=== PATIENT | female | born 1995 | race Two or more races ===

== ENCOUNTER → 2019-06-06 | Emergency (ER) | payer OTHER ==
[~2019-06-06] VITALS: Ht 160 cm; Wt 60.3 kg
== END | disposition home or self-care (01) ==
LOC: ER 22:51
DX: O20.0 Threatened abortion (principal)

== ENCOUNTER 2019-07-21 05:30 | Emergency (ER) | payer OTHER ==
[~2019-07-21] VITALS: Ht 152.4 cm; Wt 65.3 kg
[2019-07-21] MEDS ORDERED: PRENATAL + DHA1 EAC1 (05:42)
[2019-07-21] MEDS ORDERED: FOLIC ACID20 MG (05:42)
== END 2019-07-21 09:39 | disposition home or self-care (01) ==
LOC: ER 05:30
DX: O20.0 Threatened abortion (principal)

== ENCOUNTER 2020-01-01 11:20 | Inpatient (IN) | payer OTHER ==
[~2020-01-01] VITALS: Ht 160 cm; Wt 180.0 kg
[~2020-01-01 11:20] MED LIST: FOLIC ACID20 MG; PRENATAL + DHA1 EAC1
[2020-01-24] MEDS ORDERED: VALTREX1000 MG PO (02:53)
== END 2020-01-26 18:14 | DRG 807 ==
LOC: OB/GYN 01-23 14:15 → LDR 01-24 02:01 → OB/GYN 01-24 02:01
PROVIDERS: ADMIT Obstetrics & Gynecology; ATTEND Obstetrics & Gynecology
PROC: 10E0XZZ Delivery of Products of Conception, External Approach (ICD-10-PCS; principal; 2020-01-24)
PROC: 0KQM0ZZ Repair Perineum Muscle, Open Approach (ICD-10-PCS; 2020-01-24)
PROC: 0W8NXZZ Division of Female Perineum, External Approach (ICD-10-PCS; 2020-01-24)
PROC: 4A1HXCZ Monitoring of Products of Conception, Cardiac Rate, External Approach (ICD-10-PCS; 2020-01-24)
DX: O70.1 Second degree perineal laceration during delivery (principal); Z37.0 Single live birth; Z3A.40 40 weeks gestation of pregnancy; Z20.828 Contact with and (suspected) exposure to other viral communicable diseases

== ENCOUNTER 2020-01-15 13:00 | Outpatient (CLI) | payer OTHER | END 2020-01-15 13:43 | disposition home or self-care (01) | LOC: NST 13:00 | PROVIDERS: ATTEND Obstetrics & Gynecology | DX: Z34.83 Encounter for supervision of other normal pregnancy, third trimester (principal) ==

== ENCOUNTER → 2020-01-20 | Outpatient (CLI) | payer OTHER | END | disposition home or self-care (01) | LOC: NST 15:44 → OBS/DEL 15:44 | PROVIDERS: ATTEND Obstetrics & Gynecology | DX: Z34.83 Encounter for supervision of other normal pregnancy, third trimester (principal) ==

== ENCOUNTER → 2025-04-01 | Emergency (ER) | payer OTHER ==
[~2025-04-01] VITALS: Ht 160 cm; Wt 63.5 kg
[~2025-04-01] MED LIST changes: +0.9 % SODIUM CHLORIDE 1,000 ML IV ONE; +DEXAMETHASONE SODIUM PHOSP/PF 10 MG/ML VIAL IV ONE; +FAMOTIDINE/PF 20 MG/2 ML VIAL IV ONE; +FAMOTIDINE/PF 20 MG/2 ML VIAL ONE; +KETOROLAC TROMETHAMINE 30 MG VIAL IU ONE; +KETOROLAC TROMETHAMINE 30 MG VIAL IV STA; +KETOROLAC TROMETHAMINE 30 MG VIAL ONE; +MORPHINE SULFATE 4 MG/ML VIAL IV STA; +PIPERACILLIN/TAZOBACTAM SODIUM 3.375 GM VIAL IV ONE; +PIPERACILLIN/TAZOBACTAM SODIUM 3.375 GM VIAL IV STA; +TRAMADOL HCL E100 MG PO; +VALTREX1000 MG PO
[2025-04-01 20:18] VITALS: BP 100/63; O2SAT 98
[2025-04-02 00:16] LABS: BASO % 0.6 % (0.1-1.2); EOS # 0.20 (0.04-0.54); EOS % 2.1 % (0.7-7.0); LYMPH # 2.93 (1.18-3.74); LYMPH % 31.1 % (19.3-53.1); MEAN PLATELET VOLUME 10.20 fl (9.4-12.4); MONO # 0.71 (0.24-0.82); MONO % 7.5 % (4.7-12.5); NEUT # 5.50 (1.56-6.13); NEUT % 58.4 % (34.0-71.1); RED CELL DISTRIBUTION WIDTH 12.0 % (11.6-14.4)
[2025-04-02 00:29] LABS: ALT/SGPT 24.0 U/L (12-78); AST/SGOT 12.0 U/L (15-37); BILIRUBIN TOTAL 0.49 mg/dL (0.3-1.2); BUN CREA RATIO 16.0 (7.0-25.0); CREATININE SERUM 0.9 mg/dL (0.55-1.02); GFR 73.03; GLOBULINA 3.3 G/DL (2.4-3.5); GLUCOSE FASTING 105.0 mg/dL (65-100); OSMOLALITY SERUM 280.0 MOSM/KG (275-295)
[2025-04-02 02:43] LABS: URINE APPEARANCE Clear; URINE BILIRRUBIN Negative (NEGATIVE); URINE BLOOD Large; URINE COLOR Dark Yellow; URINE GLUCOSE Negative (NEGATIVE); URINE KETONE Trace (NEGATIVE); URINE LEUKOCYTE Negative; URINE NITRATE Negative; URINE UROBILINOGEN 1.0 E.U./dl
[2025-04-02 02:49] LABS: URINE BACTERIA 1663.2 uL (0.0-1933); URINE RBC 262.3 uL (0.0-20.8)
[2025-04-02 02:54] LABS: URINE EPITHELIAL CELLS 0.4 uL (0.0-38.8); URINE PROTEIN 100 (NEGATIVE); URINE WBC 0.6 uL (0.0-23.2)
[2025-04-02 02:55] LABS: URINE CAST 0.00 uL (0.0-1.40)
== END | disposition home or self-care (01) ==
LOC: ER 19:18
PROVIDERS: General Practice
DX: O20.8 Other hemorrhage in early pregnancy (principal); Z3A.01 Less than 8 weeks gestation of pregnancy; Z32.01 Encounter for pregnancy test, result positive

== ENCOUNTER 2025-04-03 11:46 | Inpatient (IN) | payer OTHER ==
[~2025-04-03] VITALS: Ht 170.2 cm; Wt 72.6 kg
[~2025-04-03 11:46] MED LIST changes: -0.9 % SODIUM CHLORIDE 1,000 ML IV ONE; -DEXAMETHASONE SODIUM PHOSP/PF 10 MG/ML VIAL IV ONE; -FAMOTIDINE/PF 20 MG/2 ML VIAL IV ONE; -FAMOTIDINE/PF 20 MG/2 ML VIAL ONE; -KETOROLAC TROMETHAMINE 30 MG VIAL IU ONE; -KETOROLAC TROMETHAMINE 30 MG VIAL IV STA; -KETOROLAC TROMETHAMINE 30 MG VIAL ONE; -MORPHINE SULFATE 4 MG/ML VIAL IV STA; -PIPERACILLIN/TAZOBACTAM SODIUM 3.375 GM VIAL IV ONE; -PIPERACILLIN/TAZOBACTAM SODIUM 3.375 GM VIAL IV STA
[2025-04-03] MEDS ORDERED: 0.9 % SODIUM CHLORIDE 1,000 ML IV SCH (12:00)
[2025-04-03] MEDS ORDERED: RINGERS SOLUTION,LACTATED 1,000 ML IV SCH (12:15)
[2025-04-03 12:29] LABS: BASO % 0.5 % (0.1-1.2); EOS # 0.06 (0.04-0.54); EOS % 1.0 % (0.7-7.0); LYMPH # 2.51 (1.18-3.74); LYMPH % 43.1 % (19.3-53.1); MEAN PLATELET VOLUME 10.00 fl (9.4-12.4); MONO # 0.44 (0.24-0.82); MONO % 7.6 % (4.7-12.5); NEUT # 2.77 (1.56-6.13); NEUT % 47.6 % (34.0-71.1); RED CELL DISTRIBUTION WIDTH 12.0 % (11.6-14.4)
[2025-04-03 13:06] LABS: INR 0.98
[2025-04-03 13:09] LABS: ALT/SGPT 24.0 U/L (12-78); AST/SGOT 11.0 U/L (15-37); BILIRUBIN TOTAL 0.59 mg/dL (0.3-1.2); BUN CREA RATIO 23.0 (7.0-25.0); CREATININE SERUM 0.65 mg/dL (0.55-1.02); GFR 106.31; GLOBULINA 3.4 G/DL (2.4-3.5); GLUCOSE FASTING 93.0 mg/dL (65-100); OSMOLALITY SERUM 284.0 MOSM/KG (275-295)
[2025-04-03] MEDS ORDERED: POVIDONE-IODINE 118 ML BOTT TOP ONE (13:19)
[2025-04-03] MEDS ORDERED: CEFAZOLIN SODIUM 1,000 MG VIAL ONE (14:16)
[2025-04-03] MEDS ORDERED: KETOROLAC TROMETHAMINE 30 MG VIAL IV PRN (18:15)
[2025-04-04] MEDS ORDERED: ACETAMINOPHEN 500 MG GEL..CAP PO PRN
[2025-04-04] MEDS ORDERED: GABAPENTIN 300 MG CAPSULE PO SCH (01:00)
[2025-04-04] MEDS ORDERED: ACETAMINOPHEN 500 MG GEL..CAP PO ONE ×2 (02:02→08:08)
[2025-04-04] MEDS ORDERED: GABAPENTIN 300 MG CAPSULE PO ONE ×2 (02:50→08:08)
[2025-04-04 09:06] LABS: BASO % 0.4 % (0.1-1.2); EOS # 0.21 (0.04-0.54); EOS % 3.9 % (0.7-7.0); LYMPH # 1.93 (1.18-3.74); LYMPH % 35.5 % (19.3-53.1); MEAN PLATELET VOLUME 9.90 fl (9.4-12.4); MONO # 0.58 (0.24-0.82); MONO % 10.7 % (4.7-12.5); NEUT # 2.68 (1.56-6.13); NEUT % 49.3 % (34.0-71.1); RED CELL DISTRIBUTION WIDTH 11.9 % (11.6-14.4)
[2025-04-04 09:31] LABS: ALT/SGPT 18.0 U/L (12-78); AST/SGOT 10.0 U/L (15-37); BILIRUBIN TOTAL 0.5 mg/dL (0.3-1.2); BUN CREA RATIO 16.0 (7.0-25.0); CREATININE SERUM 0.49 mg/dL (0.55-1.02); GFR 147.3; GLOBULINA 2.7 G/DL (2.4-3.5); GLUCOSE FASTING 86.0 mg/dL (65-100); OSMOLALITY SERUM 279.0 MOSM/KG (275-295)
[2025-04-04 15:54] VITALS: O2SAT 100
[2025-04-04 17:45] VITALS: BP 111/63
[2025-04-05 00:15] VITALS: BP 103/68
[2025-04-05 01:06] LABS: BASO % 0.4 % (0.1-1.2); EOS # 0.25 (0.04-0.54); EOS % 3.7 % (0.7-7.0); LYMPH # 2.38 (1.18-3.74); LYMPH % 35.1 % (19.3-53.1); MEAN PLATELET VOLUME 9.80 fl (9.4-12.4); MONO # 0.64 (0.24-0.82); MONO % 9.4 % (4.7-12.5); NEUT # 3.46 (1.56-6.13); NEUT % 51.1 % (34.0-71.1); RED CELL DISTRIBUTION WIDTH 12.2 % (11.6-14.4)
== END 2025-04-05 01:17 | DRG 357 ==
LOC: ER 11:47 → O/R 12:21 → OB/GYN 04-04 14:38
PROVIDERS: Student in an Organized Health Care Education/Training Program; ADMIT Obstetrics & Gynecology Gynecology; ATTEND Obstetrics & Gynecology Gynecology
PROC: 0WCG0ZZ Extirpation of Matter from Peritoneal Cavity, Open Approach (ICD-10-PCS; 2025-04-03)
PROC: 0UT64ZZ Resection of Left Fallopian Tube, Percutaneous Endoscopic Approach (ICD-10-PCS; 2025-04-03)
PROC: 10D24ZZ Extraction of Products of Conception, Ectopic, Percutaneous Endoscopic Approach (ICD-10-PCS; principal; 2025-04-03 18:30)
DX: K66.1 Hemoperitoneum (principal); O00.102 Left tubal pregnancy without intrauterine pregnancy